=== PATIENT | male | born 1960 | race African-American/Black ===

== ENCOUNTER 2021-06-25 15:48 | Emergency (ER) | payer OTHER, SELFPAY ==
[2021-06-25 15:56] VITALS: BP 162/90; PULSE 86; RESP 16; TEMP 37.1; O2SAT 99
--- NOTE | 2021-06-25 15:58 | ED.SKABFB ---
HPI - Skin/Abscess/Foreign Bdy General Chief complaint: Skin/Abscess/Foreign Body Stated complaint: pos spider bite Time Seen by Provider: 06/25/21 15:59 Source: patient and RN notes reviewed Mode of arrival: ambulatory Limitations: no limitations History of Present Illness HPI narrative: 60-year-old male presents concern for a spot on his right lower leg, reports a scabbed area that has been there approximately 1-1/2 months. He denies any known injury or trauma. Reports the area has not changed in nature in the past month. He also reports dysuria and penile discharge. He denies fever, abdominal pain, urine frequency, urgency, hematuria. Reports unprotected sex over the weekend. He denies any penile lesions or rash. MD complaint: insect bite/sting Related Data Allergies Allergy/AdvReac Type Severity Reaction Status Date / Time No Known Allergies Allergy Verified 06/25/21 15:59 Review of Systems Review of Systems: CONSTITUTIONAL: Denies malaise, chills, sweats, or fever. CARDIOVASCULAR: Denies chest pain, palpitations, or edema. RESPIRATORY: Denies cough or dyspnea. GASTROINTESTINAL: Denies abdominal pain, nausea, vomiting GENITOURINARY: Reports dysuria, penile discharge. Denies frequency, urgency, flank pain, or hematuria. SKIN: Reports round spot on his right lower leg MUSCULOSKELETAL: Denies back pain myalgia. NEUROLOGIC: Denies headache. All systems reviewed & are unremarkable except as noted in HPI and below PMFSH Comments At time of signature, agree with nursing past medical, surgical, social and family history. There is no relevant family history pertinent to the presenting complaint Exam Narrative: GENERAL: Well-appearing, well-nourished, and in no acute distress. HEAD: Normocephalic, atraumatic. EYES: PERRLA, conjunctivae clear, and EOMI. ENT: Mucous membranes moist. Oropharynx without edema, erythema or lesions. NECK: Supple. No lymphadenopathy CHEST: Clear to auscultation. No respiratory distress. HEART: Regular rate and rhythm. SKIN: Warm, dry. Annular area of plaque proximally 1 cm diameter noted to the right lower leg. (3) 0.5 cm annular areas with pink tissue beds, some scab noted to the left arm, right lower leg NEURO: Alert and oriented x3. PSYCH: Normal mood and affect Course Course Emergency Course: Discussed with patient limited to be testing at this clinic, however discussed potential for secondary syphilis due to the suspicious lesions on his legs and arms. Discussed treating patient with a longer course of doxycycline to cover for syphilis, discussed following up with his primary care provider for comprehensive testing once antibiotic course is completed. Patient is aware of diagnosis, understands and agrees to treatment plan. Anticipatory guidance given. Patient agrees to follow-up as directed and is aware of reasons to seek care at the emergency department. Portions of this record may have been created with voice recognition software Vital Signs Vital signs: Vital Signs Temperature 98.8 F 06/25/21 15:56 Pulse Rate 86 06/25/21 15:56 Respiratory Rate 16 06/25/21 15:56 Blood Pressure 162/90 H 06/25/21 15:56 Pulse Oximetry 99 06/25/21 15:56 Temperature 98.8 F 06/25/21 15:56 Pulse Rate 86 06/25/21 15:56 Respiratory Rate 16 06/25/21 15:56 Blood Pressure 162/90 H 06/25/21 15:56 Pulse Oximetry 99 06/25/21 15:56 Reviewed. MDM - Skin/Abscess/Foreign Bdy MDM Narrative Medical decision making narrative: Exam findings show no acute concerns or changes; patient is non-toxic appearing and is in no distress. Patient is appropriate for outpatient treatment and follow-up. Differential Diagnosis Differential diagnosis: Likely abscess of skin or subcutaneous tissue, herpes zoster, cellulitis, insect bites, contact dermatitis and other (Tinea, STD) Critical Care Time Critical Care Time Critical Care Time: No Discharge Plan Discharge Clinical Impression: Potential
[2021-06-25] MEDS: LIDOCAINE HCL 1% LOCAL INJ 20 ML VIAL INFILTRATE (16:27)
[2021-06-25] MEDS: cefTRIAXone 1 GM VIAL 0.5 GM IM (16:28)
== END 2021-06-25 16:54 | disposition home or self-care (01) ==
PROVIDERS: Emergency Provider Nurse Practitioner; PCP Internal Medicine
DX: Z20.2 Contact with and (suspected) exposure to infections with a predominantly sexual mode of transmission (principal); I10 Essential (primary) hypertension
CPT/HCPCS: 87491; 87591; 87661; 96372; 99213; G0463; J0696